=== PATIENT | male | born 1960 | race Caucasian/White ===

== ENCOUNTER 2018-09-14 10:41 | Outpatient (REF) | payer BC, SELFPAY ==
[2018-09-14 21:29] LABS: ALT 33 U/L (12-78); AST 29 U/L (15-37); Albumin 3.6 g/dL (3.4-5.0); Alkaline Phosphatase 116 U/L (46-116); Anion Gap 9.6 mmol/L (3-11); BUN 14 mg/dL (7-18); Bilirubin, Total 0.7 mg/dL (0.2-1.0); CO2 27.4 mmol/L (21.0-32.0); CREATININE 0.99 mg/dL (0.70-1.30); Calcium 8.7 mg/dL (8.5-10.1); Chloride 102 mmol/L (98-107); Cholesterol 240 mg/dL (50-200); Glucose 86 mg/dL (70-100); HDL Cholesterol 34 mg/dL (40-60); LDL CHOLESTEROL 158 mg/dL (<100); Sodium 139 mmol/L (136-145); Total Protein 6.8 g/dL (6.4-8.2); Triglyceride 287 mg/dL (30-150)
== END 2018-09-14 11:01 ==
LOC: NCHCN 10:41
PROVIDERS: Visit Provider Registered Nurse
DX: Z00.00 Encounter for general adult medical examination without abnormal findings (principal); R16.0 Hepatomegaly, not elsewhere classified; E66.9 Obesity, unspecified
CPT/HCPCS: 80053; 80061; 83721

== ENCOUNTER 2018-12-14 09:12 | Outpatient (REF) | payer BC, SELFPAY ==
[2018-12-14 20:59] LABS: Cholesterol 150 mg/dL (50-200); HDL Cholesterol 32 mg/dL (40-60); LDL CHOLESTEROL 93 mg/dL (<100); Triglyceride 179 mg/dL (30-150)
== END 2018-12-14 09:32 ==
LOC: NCHCN 09:12
PROVIDERS: Visit Provider Registered Nurse
DX: E78.5 Hyperlipidemia, unspecified (principal); R03.0 Elevated blood-pressure reading, without diagnosis of hypertension; G60.9 Hereditary and idiopathic neuropathy, unspecified
CPT/HCPCS: 80061; 83721

== ENCOUNTER 2019-10-11 10:06 | Outpatient (REF) | payer BC, SELFPAY ==
[2019-10-11 21:48] LABS: Hemoglobin A1C 5.6 % (3.8-5.6)
== END 2019-10-11 10:26 ==
LOC: NCHCN 10:06
PROVIDERS: Visit Provider Registered Nurse
DX: E66.01 Morbid (severe) obesity due to excess calories (principal)
CPT/HCPCS: 83036

== ENCOUNTER 2020-02-03 22:59 | Outpatient (REF) | payer BC, SELFPAY ==
[2020-02-03 21:12] LABS: HGB 14.2 g/dL (13.5-17.5); Mean Corp. HGB Concentration 33.8 g/dL (32.0-36.0); Mean Corpuscular Hemoglobin 27.7 pg (27.0-33.0); Mean Corpuscular Volume 81.9 fL (80-95); Mean Platelet Volume 9.5 fL (8.0-11.0); Platelet Count 280 x1000/uL (130-400); RBC 5.13 m/cumm (4.50-6.00); RBC Distribution Width 14.1 % (11.8-14.1); White Blood Cell Count 9.14 k/cumm (4.4-10.8)
[2020-02-03 21:29] LABS: ALT 34 U/L (16-63); AST 32 U/L (15-37); Albumin 3.8 g/dL (3.4-5.0); Alkaline Phosphatase 144 U/L (46-116); Anion Gap 6.6 mmol/L (3-11); BUN 14 mg/dL (7-18); Bilirubin, Total 0.4 mg/dL (0.2-1.0); CO2 31.4 mmol/L (21.0-32.0); CREATININE 0.84 mg/dL (0.70-1.30); Calcium 8.7 mg/dL (8.5-10.1); Chloride 101 mmol/L (98-107); Glucose 104 mg/dL (74-106); NT-proBNP 28 pg/mL (<300); Sodium 139 mmol/L (136-145)
== END 2020-02-03 23:19 ==
LOC: NCHCN 22:59
PROVIDERS: Visit Provider Registered Nurse
DX: R03.0 Elevated blood-pressure reading, without diagnosis of hypertension (principal)
CPT/HCPCS: 80053; 85027; 83880; 84443

== ENCOUNTER 2020-08-09 12:19 | Outpatient (REF) | payer BC, SELFPAY ==
[2020-08-09 22:45] LABS: Hemoglobin A1C 5.4 % (<5.7)
[2020-08-11 09:00] LABS: Hepatitis C Ab w Rflx HCV PCR Negative (Negative)
== END 2020-08-09 12:39 ==
LOC: NCHCN 12:19
PROVIDERS: Visit Provider Registered Nurse
DX: Z13.1 Encounter for screening for diabetes mellitus (principal); Z11.59 Encounter for screening for other viral diseases
CPT/HCPCS: 86803; 83036

== ENCOUNTER 2021-01-03 08:57 | Outpatient (REF) | payer BC, SELFPAY ==
[2021-01-03 14:25] LABS: BUN 18 mg/dL (7-18); CREATININE 0.8 mg/dL (0.70-1.30); Calcium 9.1 mg/dL (8.5-10.1); Chloride 102 mmol/L (98-107); Glucose 87 mg/dL (74-106); Potassium 4.2 mmol/L (3.5-5.1); Sodium 140 mmol/L (136-145)
== END 2021-01-03 08:58 | disposition home or self-care (01) ==
LOC: NCHCN 08:57
PROVIDERS: Visit Provider Registered Nurse
DX: I10 Essential (primary) hypertension (principal)
CPT/HCPCS: 80048

== ENCOUNTER 2021-08-23 19:17 | Outpatient (REF) | payer BC, SELFPAY ==
[2021-08-23 18:32] LABS: ALT 32 U/L (16-63); AST 27 U/L (15-37); Albumin 4.1 g/dL (3.4-5.0); Alkaline Phosphatase 155 U/L (46-116); Anion Gap 6.9 mmol/L (3-11); BUN 14 mg/dL (7-18); Bilirubin, Total 0.6 mg/dL (0.2-1.0); CO2 31.1 mmol/L (21.0-32.0); Chloride 100 mmol/L (98-107); Glucose 87 mg/dL (74-106); Potassium 4.2 mmol/L (3.5-5.1); Sodium 138 mmol/L (136-145); TSH 2.66 uIU/mL (0.36-3.74); Total Protein 7.5 g/dL (6.4-8.2)
[2021-08-24 17:24] LABS: PSA, Screening 0.4 ng/mL (0.0-3.5)
== END 2021-08-23 19:18 | disposition home or self-care (01) ==
LOC: LBN 19:17
PROVIDERS: Visit Provider Registered Nurse
DX: I10 Essential (primary) hypertension (principal); R06.09 Other forms of dyspnea; Z12.5 Encounter for screening for malignant neoplasm of prostate
CPT/HCPCS: 80053; 84153; 83735; 84443

== ENCOUNTER 2021-09-06 11:49 | Outpatient (REF) | payer BC, SELFPAY ==
[2021-09-06 14:53] LABS: Alkaline Phosphatase 151 U/L (46-116); Anion Gap 8.4 mmol/L (3-11); BUN 15 mg/dL (7-18); CO2 29.6 mmol/L (21.0-32.0); Calcium 9.1 mg/dL (8.5-10.1); Chloride 100 mmol/L (98-107); GGT 47 U/L (15-85); Glucose 88 mg/dL (74-106); Potassium 3.8 mmol/L (3.5-5.1); Sodium 138 mmol/L (136-145)
== END 2021-09-06 11:50 | disposition home or self-care (01) ==
LOC: NCHCN 11:49
PROVIDERS: Visit Provider Registered Nurse
DX: I10 Essential (primary) hypertension (principal); E66.01 Morbid (severe) obesity due to excess calories; R06.09 Other forms of dyspnea
CPT/HCPCS: 80048; 82977; 84075

== ENCOUNTER 2021-09-26 13:56 | Outpatient (REF) | payer BC, SELFPAY ==
[2021-09-26 22:00] LABS: Anion Gap 9.3 mmol/L (3-11); BUN 15 mg/dL (7-18); CO2 28.7 mmol/L (21.0-32.0); Calcium 9.3 mg/dL (8.5-10.1); Chloride 100 mmol/L (98-107); Glucose 157 mg/dL (74-106); PHOSPHORUS 3.8 mg/dL (2.6-4.7); Potassium 3.4 mmol/L (3.5-5.1); Sodium 138 mmol/L (136-145); TSH 1.83 uIU/mL (0.36-3.74)
[2021-09-27 00:21] LABS: Vitamin D 25 Total 22.1 ng/mL (30-100)
[2021-09-28 09:20] LABS: Parathyroid Hormone,Intact 31 pg/mL (19-88)
== END 2021-09-26 13:57 | disposition home or self-care (01) ==
LOC: NCHCN 13:56
PROVIDERS: Visit Provider Registered Nurse
DX: R74.8 Abnormal levels of other serum enzymes (principal); I10 Essential (primary) hypertension; E66.01 Morbid (severe) obesity due to excess calories; E55.9 Vitamin D deficiency, unspecified
CPT/HCPCS: 80048; 82306; 83970; 84100; 84443

== ENCOUNTER 2021-12-24 16:48 | Outpatient (REF) | payer BC, SELFPAY ==
[2021-12-24 16:40] LABS: Alkaline Phosphatase 151 U/L (46-116)
[2021-12-24 17:48] LABS: Vitamin D 25 Total 31.5 ng/mL (30-100)
== END 2021-12-24 16:49 | disposition home or self-care (01) ==
LOC: NCHCN 16:48
PROVIDERS: Visit Provider Registered Nurse
DX: R74.8 Abnormal levels of other serum enzymes (principal)
CPT/HCPCS: 82306; 84075

== ENCOUNTER 2022-01-03 08:33 | Outpatient (REF) | payer BC, SELFPAY ==
[2022-01-03 15:27] LABS: Alkaline Phosphatase 133 U/L (46-116); Anion Gap 6.5 mmol/L (3-11); BUN 18 mg/dL (7-18); CO2 28.5 mmol/L (21.0-32.0); CREATININE 0.9 mg/dL (0.70-1.30); Calcium 8.5 mg/dL (8.5-10.1); Chloride 101 mmol/L (98-107); GGT 40 U/L (15-85); Glucose 80 mg/dL (74-106); Potassium 3.9 mmol/L (3.5-5.1); Sodium 136 mmol/L (136-145)
== END 2022-01-03 08:34 | disposition home or self-care (01) ==
LOC: NCHCN 08:33
PROVIDERS: Visit Provider Registered Nurse
DX: I10 Essential (primary) hypertension (principal); R74.8 Abnormal levels of other serum enzymes
CPT/HCPCS: 80048; 82977; 84075

== ENCOUNTER 2022-03-29 08:53 | Outpatient (REF) | payer BC, SELFPAY ==
[2022-03-29 16:04] LABS: Alkaline Phosphatase 127 U/L (46-116)
== END 2022-03-29 08:54 | disposition home or self-care (01) ==
LOC: NCHCN 08:53
PROVIDERS: Visit Provider Registered Nurse
DX: R74.8 Abnormal levels of other serum enzymes (principal)
CPT/HCPCS: 84075

== ENCOUNTER 2022-07-04 11:43 | Outpatient (REF) | payer BC, SELFPAY ==
[2022-07-05 16:55] LABS: HSV 1 DNA Result Negative (Negative); HSV 2 DNA Result Negative (Negative); Varicella Zoster DNA Result Positive ((See Note))
== END 2022-07-04 11:44 | disposition home or self-care (01) ==
LOC: NCHCN 11:43
PROVIDERS: Visit Provider Registered Nurse
DX: L98.8 Other specified disorders of the skin and subcutaneous tissue (principal); Z11.59 Encounter for screening for other viral diseases
CPT/HCPCS: 87529; 87798

== ENCOUNTER 2023-02-13 09:15 | Outpatient (REF) | payer BC, SELFPAY ==
[2023-02-13 14:51] LABS: ALT 22 U/L (16-63); AST 27 U/L (15-37); Albumin 3.7 g/dL (3.4-5.0); Alkaline Phosphatase 154 U/L (46-116); Anion Gap 8.3 mmol/L (3-11); BUN 16 mg/dL (7-18); Bilirubin, Total 0.9 mg/dL (0.2-1.0); CO2 28.7 mmol/L (21.0-32.0); CREATININE 0.9 mg/dL (0.70-1.30); Calcium 9.2 mg/dL (8.5-10.1); Calculated LDL 96 mg/dL (<100); Chloride 102 mmol/L (98-107); Cholesterol 167 mg/dL (<200); Estimated GFR 97.78 (mL/min/1.73m2); Glucose 94 mg/dL (74-106); HDL Cholesterol 33 mg/dL (40-60); Sodium 139 mmol/L (136-145); Total Protein 7.3 g/dL (6.4-8.2); Triglyceride 194 mg/dL (<150)
== END 2023-02-13 09:16 | disposition home or self-care (01) ==
LOC: NCHCN 09:15
PROVIDERS: Visit Provider Registered Nurse
DX: I10 Essential (primary) hypertension (principal); E78.5 Hyperlipidemia, unspecified
CPT/HCPCS: 80053; 80061

== ENCOUNTER 2024-01-09 15:03 | Outpatient (REF) | payer BC, SELFPAY | END 2024-01-09 15:04 | disposition home or self-care (01) | LOC: NCHCN 15:03 | PROVIDERS: Visit Provider Family Medicine | DX: N39.0 Urinary tract infection, site not specified (principal); B96.29 Other Escherichia coli [E. coli] as the cause of diseases classified elsewhere | CPT/HCPCS: 87077; 87086; 87186 ==

== ENCOUNTER 2024-03-18 17:25 | Outpatient (REF) | payer BC, SELFPAY ==
--- NOTE | 2024-03-18 10:20 | SKI_PTH ---
PATIENT: Lalo Perez LOC: [facility] U#:[id number] AGE/SX: 63/M ROOM: RE03/18/[address]: MANUEL: 1960 BED: DIS: 03/18/2024 SPEC #: [id number] RECD: 03/18/24 17:52 STATUS: LYNNE LEIGH #: [id number] JULIANN: 03/18/24 10:[address]: Carmen Connolly DEPT: Surgical Specimen RECD BY: Maira Ponce ENTERED: 03/18/24 17:52 SP TYPE: SRAA YIP DR: Unknown,Unknown Tissues: 1 - SKIN CYST/TAG/DEBRIDEMENT Procedures: GROSS AND MICRO LEVEL 3 Comments: [id number]
== END 2024-03-18 17:26 | disposition home or self-care (01) ==
LOC: NCHCN 17:25
PROVIDERS: Visit Provider Family Medicine
DX: L82.1 Other seborrheic keratosis (principal); L98.8 Other specified disorders of the skin and subcutaneous tissue
CPT/HCPCS: 88304

== ENCOUNTER 2024-08-27 15:44 | Outpatient (REF) | payer BC, SELFPAY ==
[2024-08-27 14:57] LABS: Anion Gap 7.4 mmol/L (3-11); BUN 14 mg/dL (7-18); CO2 29.6 mmol/L (21.0-32.0); CREATININE 0.9 mg/dL (0.70-1.30); Calcium 9.4 mg/dL (8.5-10.1); Calculated LDL 79 mg/dL (<100); Chloride 101 mmol/L (98-107); Cholesterol 169 mg/dL (<200); Estimated GFR 97.17 (mL/min/1.73m2); Glucose 88 mg/dL (74-106); HDL Cholesterol 38 mg/dL (40-60); Potassium 3.8 mmol/L (3.5-5.1); Sodium 138 mmol/L (136-145); Triglyceride 260 mg/dL (<150)
== END 2024-08-27 15:45 | disposition home or self-care (01) ==
LOC: NCHCN 15:44
PROVIDERS: PCP Family Medicine; Visit Provider Family Medicine
DX: E78.5 Hyperlipidemia, unspecified (principal); I10 Essential (primary) hypertension
CPT/HCPCS: 80048; 80061